=== PATIENT | female | born 1995 | race Caucasian/White ===

== ENCOUNTER 2017-04-06 08:37 | Emergency (ER) | payer OTHER ==
[~2017-04-06] VITALS: Ht 160 cm; Wt 115.7 kg
[2017-04-06 09:09] LABS: *BILIRUBIN,URIN NEGATIVE (NEGATIVE); *BLOOD, URINE NEGATIVE (NEGATIVE); *COLOR,URINE YELLOW (YELLOW); *KETONES,URINE NEGATIVE (NEGATIVE); *PROTEIN,URINE NEGATIVE (NEGATIVE); *UROBILINOGEN,URINE 0.2 E.U./dl (NORMAL); LEUKOCYTE ESTERASE ,URINE NEGATIVE (NEGATIVE); NITRITE, URINE NEGATIVE (NEGATIVE); UGLUCOSE NEGATIVE (NEGATIVE)
[2017-04-06 09:20] LABS: *CLARITY,URINE HAZY (CLEAR)
[2017-04-06 09:22] LABS: BACTERIA,URINE MANY /HPF (NONE SEEN); RBC,URINE 0-3 /HPF (0-3); SQUAMOUS EPITHELIAL CELL,UR FEW /HPF (NONE SEEN); WBC,URINE 0-3 /HPF (0-3)
[2017-04-06 09:23] LABS: *URINE HCG, QUAL NEGATIVE (NEGATIVE)
[2017-04-06] MEDS ORDERED: KETOROLAC TROMETHAMINE 15 MG INJ IV ONE (09:30)
[2017-04-06] MEDS ORDERED: METOCLOPRAMIDE HCL 10 MG/2 ML VIAL IV ONE (09:30)
[2017-04-06] MEDS ORDERED: KETOROLAC TROMETHAMINE 15 MG INJ ONE (09:51)
[2017-04-06] MEDS ORDERED: METOCLOPRAMIDE HCL 10 MG/2 ML VIAL ONE (09:51)
[2017-04-06 09:58] LABS: BASOPHILS % (AUTO) 0.6 % (0.0-2.0); EOSINOPHILS # (AUTO) 0.1 K/uL (0.0-0.7); EOSINOPHILS % (AUTO) 1.3 % (0.0-7.0); HEMATOCRIT 39.4 % (31.2-41.9); HEMOGLOBIN 13.3 g/dL (10.9-14.3); LYMPHOCYTES # (AUTO) 1.6 K/uL (20.0-40.0); MEAN CORPUSCULAR HEMOGLOBIN 28.2 uug (24.7-32.8); MEAN CORPUSCULAR HGB CONC 34 g/dL (32.3-35.6); MEAN CORPUSCULAR VOLUME 83.8 fL (75.5-95.3); MONOCYTES # (AUTO) 0.5 K/uL (2.0-10.0); NEUTROPHILS # (AUTO) 5.4 K/uL (1.8-8.9); NEUTROPHILS % (AUTO) 70.1 % (38.5-71.5); PLATELET COUNT (AUTO) 202 K/uL (179-408); RED BLOOD CELL COUNT(AUTO) 4.71 MIL/uL (3.63-4.92); WHITE BLOOD COUNT (AUTO) 7.7 K/uL (3.8-11.8)
[2017-04-06 10:01] LABS: CARBON DIOXIDE 26 mmol/L (21-32); CHLORIDE 105 mmol/L (98-107); CREATININE 0.5 mg/dL (0.6-1.3); GLUCOSE 101 mg/dL (74-106); POTASSIUM 4.2 mmol/L (3.5-5.1); UREA NITROGEN, BLOOD 12 mg/dL (7-18)
[2017-04-06 10:17] LABS: ALANINE AMINOTRANSFERASE 172 U/L (14-59); ALKALINE PHOSPHATASE 189 U/L (50-136); ASPARTATE AMINOTRANSFERASE 208 U/L (15-37); BILIRUBIN,DIRECT 0.2 mg/dL (0.0-0.2); BILIRUBIN,TOTAL 0.5 mg/dL (0.2-1.0); LIPASE 145 U/L (73-393)
--- NOTE | 2017-04-06 11:29 | NUR ---
Patient discharged to home in stable conditon. Written and verbal after care instructions given. Patient verbalizes understanding of instructions.pt walks in steady gait. ptsayas feels better.
== END 2017-04-06 11:30 | disposition home or self-care (01) ==
LOC: ER 08:37
DX: K80.70 Calculus of gallbladder and bile duct without cholecystitis without obstruction (principal)
CPT/HCPCS: 36415; 70030-TC; 71010; 83690; 84703; 85025; 87077; 87086; 93005; A4663; J1885; J2765

== ENCOUNTER 2017-04-08 08:18 | Emergency (ER) | payer OTHER ==
[~2017-04-08] VITALS: Ht 160 cm; Wt 115.7 kg
[2017-04-08] MEDS ORDERED: IBUP-1955 PO (08:25)
--- NOTE | 2017-04-08 08:35 | NUR ---
Dr Saxena at the bedside for eval and exam.
[2017-04-08] MEDS ORDERED: IV NORMAL SALINE 1000 ML BAG IV ONE ×2 (08:45→09:30)
[2017-04-08] MEDS ORDERED: ONDANSETRON 4 MG/2 ML VIAL IV ONE ×2 (08:45→09:30)
[2017-04-08] MEDS ORDERED: PANTOPRAZOLE SODIUM 40 MG VIAL IV ONE (08:45)
[2017-04-08 09:02] LABS: BASOPHILS # (AUTO) 0.1 K/uL (0.0-8.0); BASOPHILS % (AUTO) 0.8 % (0.0-2.0); EOSINOPHILS # (AUTO) 0.2 K/uL (0.0-0.7); EOSINOPHILS % (AUTO) 2.2 % (0.0-7.0); HEMATOCRIT 37.4 % (31.2-41.9); HEMOGLOBIN 12.7 g/dL (10.9-14.3); LYMPHOCYTES # (AUTO) 2.1 K/uL (20.0-40.0); MEAN CORPUSCULAR HEMOGLOBIN 28.2 uug (24.7-32.8); MEAN CORPUSCULAR HGB CONC 34 g/dL (32.3-35.6); MEAN CORPUSCULAR VOLUME 82.9 fL (75.5-95.3); MONOCYTES # (AUTO) 0.4 K/uL (2.0-10.0); MONOCYTES % (AUTO) 5.3 % (0.0-11.0); NEUTROPHILS # (AUTO) 4.6 K/uL (1.8-8.9); NEUTROPHILS % (AUTO) 62.7 % (38.5-71.5); PLATELET COUNT (AUTO) 203 K/uL (179-408); RED BLOOD CELL COUNT(AUTO) 4.51 MIL/uL (3.63-4.92); WHITE BLOOD COUNT (AUTO) 7.4 K/uL (3.8-11.8)
[2017-04-08] MEDS ORDERED: PANTOPRAZOLE SODIUM 40 MG VIAL ONE (09:04)
[2017-04-08] MEDS ORDERED: ONDANSETRON 4 MG/2 ML VIAL ONE ×2 (09:04→10:07)
[2017-04-08 09:09] LABS: *BILIRUBIN,URIN NEGATIVE (NEGATIVE); *BLOOD, URINE NEGATIVE (NEGATIVE); *CLARITY,URINE SLIGHTLY CLOUDY (CLEAR); *COLOR,URINE LIGHT YELLOW (YELLOW); *KETONES,URINE NEGATIVE (NEGATIVE); *PROTEIN,URINE NEGATIVE (NEGATIVE); *UROBILINOGEN,URINE 0.2 E.U./dl (NORMAL); LEUKOCYTE ESTERASE ,URINE 2+ (NEGATIVE); NITRITE, URINE NEGATIVE (NEGATIVE); UGLUCOSE NEGATIVE (NEGATIVE)
[2017-04-08 09:14] LABS: ALANINE AMINOTRANSFERASE 153 U/L (14-59); ALKALINE PHOSPHATASE 191 U/L (50-136); ASPARTATE AMINOTRANSFERASE 134 U/L (15-37); BILIRUBIN,DIRECT 0.1 mg/dL (0.0-0.2); BILIRUBIN,TOTAL 0.3 mg/dL (0.2-1.0); CARBON DIOXIDE 24 mmol/L (21-32); CHLORIDE 107 mmol/L (98-107); CREATININE 0.5 mg/dL (0.6-1.3); GLUCOSE 90 mg/dL (74-106); LIPASE 505 U/L (73-393); POTASSIUM 4.1 mmol/L (3.5-5.1); TOTAL PROTEIN, SERUM 6.9 g/dL (6.4-8.2); UREA NITROGEN, BLOOD 11 mg/dL (7-18)
[2017-04-08 09:14] LABS: *URINE HCG, QUAL NEGATIVE (NEGATIVE)
[2017-04-08 09:23] LABS: BACTERIA,URINE MANY /HPF (NONE SEEN); RBC,URINE 0-3 /HPF (0-3)
[2017-04-08 09:24] LABS: SQUAMOUS EPITHELIAL CELL,UR MODERATE /HPF (NONE SEEN)
[2017-04-08] MEDS ORDERED: PIPERACILLIN SODIUM/TAZOBACTAM 3.375 G in IV DEXTROSE 5% 50 ML IV ONE (09:30)
[2017-04-08] MEDS ORDERED: MORPHINE SULFATE 4 MG/1 ML DISP.SYRIN IV ONE (09:30)
[2017-04-08] MEDS ORDERED: MORPHINE SULFATE 4 MG/1 ML DISP.SYRIN ONE (09:39)
--- NOTE | 2017-04-08 09:55 | NUR ---
Belonging list completed, and placed in the chart. pt not candidate for MRSA.
[2017-04-08] MEDS ORDERED: PIPERACILLIN/TAZOBACTAM/D5W 50 ML IV ONE (10:07)
--- NOTE | 2017-04-08 10:40 | NUR ---
Patient is resting comfortably in bed with eyes closed, NAD noted.
[2017-04-08] MEDS ORDERED: IV NS 1000 ML 1,000 ML IV PRN (12:08)
[2017-04-08] MEDS ORDERED: Z GUARD REMEDY PASTE 57 GM TUBE TOP PRN (12:15)
[2017-04-08] MEDS ORDERED: ZOLPIDEM 5 MG TABLET PO PRN (12:15)
[2017-04-08] MEDS ORDERED: ONDANSETRON 4 MG/2 ML VIAL IV PRN (12:15)
[2017-04-08] MEDS ORDERED: MORPHINE SULFATE 2 MG/1 ML DISP.SYRIN IV PRN (12:15)
[2017-04-08] MEDS ORDERED: ACETAMINOPHEN 325 MG TABLET PO PRN (12:15)
--- NOTE | 2017-04-08 13:53 | NUR ---
Patient is capitated to [facility] under [employer] (contact: Lianna @ [phone]). Dr. Christophe Lynn putting in order for Lipase level. If remains the same or is better patient will be discharged home. If patient needs to remain in hospital patient has a bed ( [address]) [place] [facility] [place] [address] [place] [address]. Report to be given to Zahira at . Ambulance placed on will call. Waiting for results of lipase level at this time.
[2017-04-08] MEDS ORDERED: CEPHALEXIN MONOHYDRATE 500 MG CAPSULE PO SCH (14:00)
--- NOTE | 2017-04-08 16:28 | NUR ---
pt discharged to home as recommended by dr dorsey. no prescriptions were given at time of discharge.pt given discharge summary copy and instructed pt to follow up with pcp. used exitcare instructions such as dash diet, acute pancreatitis, and smoking cessation. pt verbalizes understanding. belonings list reconciled and signed. all documents placed in chart. vitals stable. no signs of acute distress. pt left with family member
[2017-04-08] MEDS ORDERED: ENOXAPARIN SODIUM 40 MG/0.4 ML DISP.SYRIN SQ SCH (21:00)
== END 2017-04-08 11:13 | disposition other institution (70) ==
LOC: ER 08:18 → MED 10:13 → UNDOADMIN 10:13 → UNDODISIN 16:25
DX: K85.10 Biliary acute pancreatitis without necrosis or infection (principal)
CPT/HCPCS: 36415; 76705; 80048; 80076; 81001; 83690 ×2; 84703; 85025; 96365; 96375; 96376; 99285; A4663; C9113; J2270 ×2; J2405 ×2; J2543; J7030